=== PATIENT | female | born 1975 | race Caucasian/White ===

== ENCOUNTER → 2017-01-24 | Outpatient (CLI) | payer OTHER ==
--- NOTE | 2017-01-24 10:43 | MM ---
Reason for exam: clinical finding. Last mammogram was performed 11 years ago. History: Took hormonal contraceptives beginning at age 21. Indicated problem(s): non-bloody discharge in the right breast. Physical Findings: Nurse did not find any significant physical abnormalities on exam. MG 3D Diag Mammo W/Cad LIU Bilateral CC and MLO view(s) were taken. Prior study comparison: January 20, 2006, CAD bilateral diagnostic mammogram. The breast tissue is heterogeneously dense. This may lower the sensitivity of mammography. There is no discrete abnormality including area of concern. No significant new findings when compared with previous films. These results were verbally communicated with the patient and result sheet given to the patient on 01/24/17. ASSESSMENT: Incomplete: need additional imaging evaluation, BI-RAD 0 RECOMMENDATION: Ultrasound of the right breast. Manage patient on a clinical basis.
--- NOTE | 2017-01-24 10:47 | USB ---
Reason for exam: additional evaluation requested from abnormal screening. History: Took hormonal contraceptives beginning at age 21. US Breast RT Right breast ultrasound includes all four quadrants, the retroareolar region and axilla. Finding demonstrates ducts at the posterior nipple. These results were verbally communicated with the patient and result sheet given to the patient on 01/24/17. ASSESSMENT: Benign, BI-RAD 2 RECOMMENDATION: Routine screening mammogram of both breasts in 1 year. Manage on a clinical basis. Consider ductogram if discharge persist.
== END | disposition home or self-care (01) ==
LOC: RADMAMWWP 08:28 → MERGE 08:28
PROVIDERS: ATTEND Internal Medicine
DX: N64.52 Nipple discharge (principal)
CPT/HCPCS: 76641; G0204; G0279

== ENCOUNTER → 2017-02-21 | Outpatient (CLI) | payer BC ==
[2017-02-21 10:02] VITALS: BMI 27.4
[2017-02-21 11:17] VITALS: BP 124/56; PULSE 78; RESP 16; TEMP 98.8
--- NOTE | 2017-02-21 14:34 | MM ---
EXAMINATION TYPE: MG ductogram single duct RT DATE OF EXAM: 02/21/2017 HISTORY: Bloody nipple discharge right breast 4:00 position duct Comparison: Ultrasound breast 01/24/2017 and mammography 01/24/2017. Informed consent was obtained and all the patient's questions were answered. 5 cc of Omnipaque 180 wa s drawn up. 30-gauge hockey-stick duct hypertrophy catheter was utilized. The patient was able to express a small amount of discharge from the right nipple at the approximate 4:00 position. Despite difficulty the offending duct was cannulated on 2 occasions. Contrast was inje cted however the duct did not fill appropriately. Suspect partially occluding lesion or partially occ luding inspissated material. Procedure was subsequently aborted. IMPRESSION: 1. Unsuccessful ductogram right breast.Suspect partially occluding lesion or partially occluding insp issated material. Further evaluation recommended with MRI of the breasts and/or surgical consult.
== END | disposition home or self-care (01) ==
LOC: MERGE 09:39 → RADMAMWWP 09:39
PROVIDERS: ATTEND Obstetrics & Gynecology
DX: N64.52 Nipple discharge (principal)
CPT/HCPCS: 77053; 19030; Q9965

== ENCOUNTER 2020-12-09 13:13 | Observation (INO) | payer BC, MEDICARE, OTHER ==
--- NOTE | 2020-12-09 14:48 | ED ---
General Adult HPI - General Chief complaint: Upper Respiratory Infection Stated complaint: Upper Resp, Sent by urgent care Time Seen by Provider: 12/09/20 14:09 Source: patient, RN notes reviewed Mode of arrival: ambulatory Limitations: no limitations - History of Present Illness Initial comments: Patient is a pleasant 45-year-old female presenting to the emergency department with upper respiratory symptoms. Onset of symptoms was several weeks ago. Patient has sinus fullness and congestion. Patient has had occasional green drainage, none today. Patient has drainage down her throat. Patient has occasional dry cough. No dyspnea. No abdominal pain or urinary symptoms. Patient was tested negative for COVID-19 infection 2 weeks ago. 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 No fever however patient has felt warm. - Related Data Home Medications Medication Instructions Recorded Confirmed fluvoxaMINE [Luvox] 150 mg PO ONCE 02/17/17 02/21/17 Allergies Allergy/AdvReac Type Severity Reaction Status Date / Time Penicillins Allergy Rash/Hives Verified 12/09/20 13:48 shellfish derived Allergy Swelling Verified 12/09/20 13:48 Sulfa (Sulfonamide Allergy Anaphylaxis Verified 12/09/20 13:48 Antibiotics) Review of Systems ROS Statement: Those systems with pertinent positive or pertinent negative responses have been documented in the HPI. ROS Other: All systems not noted in ROS Statement are negative. Constitutional: Reports: as per HPI. Denies: fever Eyes: Denies: eye pain ENT: Reports: as per HPI, throat pain, congestion. Denies: ear pain Respiratory: Reports: cough. Denies: dyspnea Cardiovascular: Denies: chest pain Endocrine: Denies: fatigue Gastrointestinal: Denies: abdominal pain Genitourinary: Denies: dysuria Musculoskeletal: Denies: back pain Skin: Denies: rash Neurological: Denies: weakness Past Medical History Past Medical History: Thyroid Disorder Additional Past Medical History / Comment(s): hypoglycemia History of Any Multi-Drug Resistant Organisms: None Reported Past Surgical History: No Surgical Hx Reported Additional Past Surgical History / Comment(s): spleen Past Psychological History: Anxiety Smoking Status: Never smoker Past Alcohol Use History: None Reported, Occasional Past Drug Use History: None Reported General Exam Limitations: no limitations General appearance: alert, in no apparent distress Head exam: Present: normocephalic Eye exam: Present: normal appearance, PERRL ENT exam: Present: other (Patient does have mild tenderness over the frontal ethmoid and maxillary sinuses. There is mild cobblestoning of the posterior pharynx) Neck exam: Present: normal inspection, full ROM. Absent: meningismus, lymphadenopathy Respiratory exam: Present: normal lung sounds bilaterally Cardiovascular Exam: Present: regular rate, normal rhythm GI/Abdominal exam: Present: soft. Absent: tenderness Extremities exam: Present: normal inspection Neurological exam: Present: alert Psychiatric exam: Present: normal affect, normal mood Skin exam: Present: normal color Course Vital Signs 12/09/20 12/09/20 13:49 16:03 Temperature 98.8 F Pulse Rate 94 78 Respiratory 20 16 Rate Blood Pressure 127/88 133/81 O2 Sat by Pulse 96 Oximetry EKG Findings - EKG Comments: EKG Findings:: Normal sinus rhythm with a rate of 78. NC 170. QRS 86. QT 396. QTc 451. Normal axis. Normal QRS. No acute ST change. Medical Decision Making - Medical Decision Making Patient reevaluated and resting comfortably in bed. Patient updated on results and recommendation for admission. Patient recommendation is secondary to a sp lenic with concern for infection, possible urinary tract infection. Patient also has sinusitis. Case was discussed with practitioner rosie, who agrees, covering with Dr. Mancera for hospital call. - Lab Data Result diagrams: 12/09/20 15:14 12/09/20 15:14 Lab Results 12/09/20 12/09/20 12/09/20 Range/Units 15:14 15:14 15:14 WBC 14.4 H (3.8-10.6) k/uL RBC 4.92 (3.80-5.40) m/uL Hgb 15.5 (11.4-16.0) gm/dL Hct 46.7 H (34.0-46.0) % MCV 94.8 (80.0-100.0) fL MCH 31.4 (25.0-35.0) pg MCHC 33.1 (31.0-37.0) g/dL RDW 12.5 (11.5-15.5) % Plt Count 420 (150-450) k/uL MPV 8.2 Neutrophils % 69 % Lymphocytes % 17 % Monocytes % 7 % Eosinophils % 4 % Basophils % 1 % Neutrophils # 9.9 H (1.3-7.7) k/uL Lymphocytes # 2.4 (1.0-4.8) k/uL Monocytes # 1.0 (0-1.0) k/uL Eosinophils # 0.6 (0-0.7) k/uL Basophils # 0.2 (0-0.2) k/uL PT 11.3 (9.0-12.0) sec INR 1.1 (<1.2) APTT 23.4 (22.0-30.0) sec Sodium (137-145) mmol/L Potassium (3.5-5.1) mmol/L Chloride (98-107) mmol/L Carbon Dioxide (22-30) mmol/L Anion Gap mmol/L BUN (7-17) mg/dL Creatinine (0.52-1.04) mg/dL Est GFR (CKD-EPI)AfAm (>60 ml/min/1.73 sqM) Est GFR (CKD-EPI)NonAf (>60 ml/min/1.73 sqM) Glucose (74-99) mg/dL Plasma Lactic Acid Surjit (0.7-2.0) mmol/L Calcium (8.4-10.2) mg/dL Total Bilirubin (0.2-1.3) mg/dL AST (14-36) U/L ALT (4-34) U/L Alkaline Phosphatase (38-126) U/L Total Protein (6.3-8.2) g/dL Albumin (3.5-5.0) g/dL Urine Color Urine Appearance (Clear) Urine pH (5.0-8.0) Ur Specific [place] (1.001-1.035) Urine Protein (Negative) Urine Glucose (UA) (Negative) Urine Ketones (Negative) Urine Blood (Negative) Urine Nitrite (Negative) Urine Bilirubin (Negative) Urine Urobilinogen (<2.0) mg/dL Ur Leukocyte Esterase (Negative) Urine RBC (0-5) /hpf Urine WBC (0-5) /hpf Ur Squamous Epith Cells (0-4) /hpf Hyaline Casts (0-2) /lpf Urine Mucus (None) /hpf Influenza Type A (PCR) Not Detected (Not Detectd) Influenza Type B (PCR) Not Detected (Not Detectd) RSV (PCR) Not Detected (Not Detectd) SARS-CoV-2 (PCR) Not Detected (Not Detectd) 12/09/20 12/09/20 12/09/20 Range/Units 15:14 15:14 15:14 WBC (3.8-10.6) k/uL RBC (3.80-5.40) m/uL Hgb (11.4-16.0) gm/dL Hct (34.0-46.0) % MCV (80.0-100.0) fL MCH (25.0-35.0) pg MCHC (31.0-37.0) g/dL RDW (11.5-15.5) % Plt Count (150-450) k/uL MPV Neutrophils % % Lymphocytes % % Monocytes % % Eosinophils % % Basophils % % Neutrophils # (1.3-7.7) k/uL Lymphocytes # (1.0-4.8) k/uL Monocytes # (0-1.0) k/uL Eosinophils # (0-0.7) k/uL Basophils # (0-0.2) k/uL PT (9.0-12.0) sec INR (<1.2) APTT (22.0-30.0) sec Sodium 140 (137-145) mmol/L Potassium 4.2 (3.5-5.1) mmol/L Chloride 104 (98-107) mmol/L Carbon Dioxide 26 (22-30) mmol/L Anion Gap 10 mmol/L BUN 12 (7-17) mg/dL Creatinine 0.68 (0.52-1.04) mg/dL Est GFR (CKD-EPI)AfAm >90 (>60 ml/min/1.73 sqM) Est GFR (CKD-EPI)NonAf >90 (>60 ml/min/1.73 sqM) Glucose 97 (74-99) mg/dL Plasma Lactic Acid Surjit 1.0 (0.7-2.0) mmol/L Calcium 9.5 (8.4-10.2) mg/dL Total Bilirubin 0.2 (0.2-1.3) mg/dL AST 26 (14-36) U/L ALT 27 (4-34) U/L Alkaline Phosphatase 112 (38-126) U/L Total Protein 7.8 (6.3-8.2) g/dL Albumin 4.6 (3.5-5.0) g/dL Urine Color Yellow Urine Appearance Clear (Clear) Urine pH 5.5 (5.0-8.0) Ur Specific [place] 1.019 (1.001-1.035) Urine Protein Negative (Negative) Urine Glucose (UA) Negative (Negative) Urine Ketones Trace H (Negative) Urine Blood Negative (Negative) Urine Nitrite Negative (Negative) Urine Bilirubin Negative (Negative) Urine Urobilinogen <2.0 (<2.0) mg/dL Ur Leukocyte Esterase Moderate H (Negative) Urine RBC 2 (0-5) /hpf Urine WBC 13 H (0-5) /hpf Ur Squamous Epith Cells 11 H (0-4) /hpf Hyaline Casts 1 (0-2) /lpf Urine Mucus Moderate H (None) /hpf Influenza Type A (PCR) (Not Detectd) Influenza Type B (PCR) (Not Detectd) RSV (PCR) (Not Detectd) SARS-CoV-2 (PCR) (Not Detectd) - Radiology Data Radiology results: image reviewed (No acute pulmonary process on chest x-ray. Posttraumatic changes.) Disposition Clinical Impression: Sinusitis, Hx of splenectomy, Urinary tract infection Disposition: ADMITTED IP TO THIS HOSP Is patient prescribed a controlled substance at d/c from ED?: No Referrals: Sukumar Gasca MD [Primary Care Provider] - 1-2 days Decision Time: 16:55
[2020-12-09 15:27] LABS: Basophils # (A) 0.2 k/uL (0-0.2); Basophils % (A) 1 %; Eosinophils # (A) 0.6 k/uL (0-0.7); Eosinophils % (A) 4 %; HCT 46.7 % (34.0-46.0); HGB 15.5 gm/dL (11.4-16.0); Lymphocytes # (A) 2.4 k/uL (1.0-4.8); Lymphocytes % (A) 17 %; MCH 31.4 pg (25.0-35.0); MCHC 33.1 g/dL (31.0-37.0); MCV 94.8 fL (80.0-100.0); Mean Platelet Volume 8.2; Monocytes % (A) 7 %; Neutrophils # (A) 9.9 k/uL (1.3-7.7); Neutrophils % (A) 69 %; Platelet Count 420 k/uL (150-450); RBC 4.92 m/uL (3.80-5.40); RDW 12.5 % (11.5-15.5); WBC 14.4 k/uL (3.8-10.6)
[2020-12-09 15:34] LABS: Appearance,Urine Clear (Clear); Bilirubin,Urine Negative (Negative); Blood,Urine Negative (Negative); Color,Urine Yellow; Glucose,Urine (UA) Negative (Negative); Hyaline Casts,Urine 1 /lpf (0-2); Ketones,Urine Trace (Negative); Leukocyte Esterase,Urine Moderate (Negative); Mucus,Urine Moderate /hpf; Nitrite,Urine Negative (Negative); PH, Urine 5.5 (5.0-8.0); Protein,Urine Negative (Negative); RBC,Urine 2 /hpf (0-5); Specific Gravity,Urine 1.019 (1.001-1.035); Squamous Epithelial Cell,Urine 11 /hpf (0-4); Urobilinogen,Urine <2.0 mg/dL (<2.0); WBC,Urine 13 /hpf (0-5)
[2020-12-09 15:37] LABS: INR 1.1 (<1.2); Partial Thromboplastin Time 23.4 sec (22.0-30.0); Prothrombin Time 11.3 sec (9.0-12.0)
[2020-12-09 15:38] LABS: ALT 27 U/L (4-34); AST 26 U/L (14-36); African American GFR (CKD) >90 (>60 ml/min/1.73 sqM); Albumin 4.6 g/dL (3.5-5.0); Alkaline Phosphatase 112 U/L (38-126); Anion Gap 10 mmol/L; Blood Urea Nitrogen 12 mg/dL (7-17); Calcium 9.5 mg/dL (8.4-10.2); Carbon Dioxide 26 mmol/L (22-30); Chloride 104 mmol/L (98-107); Glucose 97 mg/dL (74-99); Non-African American GFR(CKD) >90 (>60 ml/min/1.73 sqM); Potassium 4.2 mmol/L (3.5-5.1); Sodium 140 mmol/L (137-145); Total Bilirubin 0.2 mg/dL (0.2-1.3); Total Protein 7.8 g/dL (6.3-8.2)
--- NOTE | 2020-12-09 15:54 | XR ---
EXAMINATION TYPE: XR chest 2V DATE OF EXAM: 12/09/2020 COMPARISON: NONE HISTORY: Fever, upper respiratory congestion TECHNIQUE: Frontal and lateral views of the chest are obtained. FINDINGS: There is no focal air space opacity, pleural effusion, or pneumothorax seen. The cardiac silhouette size is within normal limits. The osseous structures are remarkable for posttraumatic an d postsurgical changes to the left ribs. Posterior aspect one of the hemidiaphragms does not extend i nferiorly, there may be posterior diaphragmatic hernia, bowel loops seen beneath on the lateral view. IMPRESSION: No acute cardiopulmonary process. Posttraumatic changes are suspected and felt likely to be chronic.
[2020-12-09] MEDS ORDERED: NALOXONE 0.4 MG/ML 1 ML VIAL IV PRN (16:55)
[2020-12-09] MEDS ORDERED: LEVOFLOXACIN 750MG-D5W PMX 750 MG in DEXTROSE/WATER 1 150ML.BAG IVPB STA (16:56)
[2020-12-09] MEDS ORDERED: LEVOFLOXACIN 750MG-D5W PMX 750 MG in DEXTROSE/WATER 1 150ML.BAG IVPB SCH (17:00)
[2020-12-09] MEDS: SODIUM CHLORIDE 0.9% 1,000 ML IV SCH ×2 (17:09→21:42)
[2020-12-09] MEDS: ACETAMINOPHEN TAB 325 MG TAB PO PRN (19:52)
[2020-12-09] MEDS ORDERED: MELOXICAM 7.5 MG TAB PO PRN (21:03)
[2020-12-09] MEDS ORDERED: FLUTICASONE 50MCG/SPRAY NASAL 16GM EA NOSTRIL PRN (21:04)
[2020-12-10 02:16] VITALS: PULSE 82
[2020-12-10] MEDS: ACETAMINOPHEN TAB 325 MG TAB PO PRN ×2 (07:14→12:27)
[2020-12-10 08:10] VITALS: BP 133/89; RESP 18; TEMP 98.2
[2020-12-10] MEDS ORDERED: THYROID, PORK 30 MG TAB PO SCH (09:00)
[2020-12-10 09:35] LABS: HGB 14.4 g/dL (12.0-15.0); MCH 30.7 pg (27.0-32.0); MCHC 32.7 g/dL (32.0-37.0); MCV 93.8 fL (80.0-97.0); Mean Platelet Volume 10.9 fL (9.5-12.2); Platelet Count 417 X 10*3/uL (140-440); RBC 4.69 X 10*6/uL (4.10-5.20); RDW 13.7 % (11.5-14.5); WBC 8.36 X 10*3/uL (4.50-10.00)
[2020-12-10] MEDS: SODIUM CHLORIDE 0.9% 1,000 ML IV SCH (10:36)
[2020-12-10 11:08] LABS: Basophils # (M) 0.08 X 10*3/uL (0.00-0.10); Eosinophils # (M) 0.33 X 10*3/uL (0.04-0.35); Lymphocytes # (M) 2.01 X 10*3/uL (0.90-5.00); Monocytes # (M) 1.17 X 10*3/uL (0.20-1.00); Neutrophils # (M) 4.77 X 10*3/uL (2.00-8.90); Neutrophils % (M) 57 %
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
--- NOTE | 2020-12-10 12:15 | P.DS ---
Providers Date of admission: 12/09/20 16:55 Attending physician: Jimmy Mancera Primary care physician: Sukumar Gasca [facility] Course: Refer to history of present illness for further details Plan - Discharge Summary Discharge Rx Participant: No New Discharge Prescriptions: New Fluticasone Nasal [place] [Flonase Nasal [place]] 2 spray EA NOSTRIL DAILY #16 gm Guaifen/Phenyleph/Acetaminophn [Mucinex Sinus-Max Severe Liq] 5 ml PO TID #180 ml Cefuroxime Axetil [Ceftin] 500 mg PO BID 7 Days #14 tab No Action fluvoxaMINE [Luvox] 150 mg PO HS Meloxicam 15 mg PO DAILY PRN PRN Reason: Pain Thyroid,Pork [Client Account Representative Thyroid] 90 mg PO DAILY Discharge Medication List fluvoxaMINE [Luvox] 150 mg PO HS 02/17/17 [History] Meloxicam 15 mg PO DAILY PRN 12/09/20 [History] Thyroid,Pork [Client Account Representative Thyroid] 90 mg PO DAILY 12/09/20 [History] Cefuroxime Axetil [Ceftin] 500 mg PO BID 7 Days #14 tab 12/10/20 [Rx] Fluticasone Nasal [place] [Flonase Nasal [place]] 2 spray EA NOSTRIL DAILY #16 gm 12/10/20 [Rx] Guaifen/Phenyleph/Acetaminophn [Mucinex Sinus-Max Severe Liq] 5 ml PO TID #180 ml 12/10/20 [Rx] Follow up Appointment(s)/Referral(s): Santi Sauceda DO [Doctor of Osteopathic Medicine] - 1 Week (PLEASE CALL FOR APPOINTMENT, OFFICE UNABLE TO ANSWER PHONE AT THE TIME OF YOUR DISCHARGE.) Sukumar Gasca MD [Primary Care Provider] - 3 Days (OFFICE STATES TO KEEP YOUR APPOINTMENT ON February AT 2:45 PM, UNABLE TO MOVE APPOINTMENT TO A SOONER DATE/TIME.) Patient Instructions/Handouts: Urinary Tract Infection in Women (DC), Sinusitis (GEN) Discharge Disposition: HOME SELF-CARE
[2020-12-10] MEDS ORDERED: LEVOFLOXACIN 750MG-D5W PMX 750 MG in DEXTROSE/WATER 1 150ML.BAG IVPB SCH (17:00)
== END 2020-12-10 12:37 | disposition home or self-care (01) ==
LOC: EC 13:13 → 6NMEDSUR 16:55
PROVIDERS: ADMIT Internal Medicine; ATTEND Internal Medicine
DX: J06.9 Acute upper respiratory infection, unspecified (principal); N39.0 Urinary tract infection, site not specified; H92.09 Otalgia, unspecified ear; Z90.81 Acquired absence of spleen; E07.9 Disorder of thyroid, unspecified; F41.9 Anxiety disorder, unspecified; E16.2 Hypoglycemia, unspecified; E66.9 Obesity, unspecified; Z68.29 Body mass index [BMI] 29.0-29.9, adult; Z20.822 Contact with and (suspected) exposure to COVID-19; Z87.820 Personal history of traumatic brain injury; Z79.899 Other long term (current) drug therapy; Z79.890 Hormone replacement therapy; Z88.0 Allergy status to penicillin; Z88.2 Allergy status to sulfonamides; Z91.013 Allergy to seafood
CPT/HCPCS: 96366 ×2; 96367; 96365; 99284; 36415; 93005; 80053; 83605; 85025 ×2; 85610; 85730; 81001; 87040; 87086; 87081; 87636; 71046; G0378 ×2; J0696; J1956